=== PATIENT | male | born 1975 | race Two or more races ===

== ENCOUNTER 2021-01-24 07:28 | Emergency (ER) | payer OTHER ==
[~2021-01-24] VITALS: Ht 177.8 cm; Wt 99.8 kg
== END 2021-01-24 09:10 | disposition home or self-care (01) ==
LOC: ER 07:28
DX: J03.90 Acute tonsillitis, unspecified (principal)

== ENCOUNTER 2021-07-23 10:42 | Outpatient (CLI) | payer OTHER | END 2021-07-23 10:43 | disposition home or self-care (01) | LOC: RAD 10:42 | PROVIDERS: ATTEND Family Medicine | DX: M54.2 Cervicalgia (principal) ==

== ENCOUNTER 2021-07-24 08:10 | Outpatient (CLI) | payer OTHER | END 2021-07-24 08:11 | disposition home or self-care (01) | LOC: SONOGRAMA 08:10 | DX: R94.5 Abnormal results of liver function studies (principal) ==

== ENCOUNTER 2021-08-16 15:13 | Outpatient (CLI) | payer OTHER | END 2021-08-16 15:20 | disposition home or self-care (01) | LOC: RAD 15:13 | PROVIDERS: ATTEND Family Medicine | DX: R05.9 Cough, unspecified (principal) ==